=== PATIENT | male | born 1975 | race Caucasian/White ===

== ENCOUNTER → 2016-10-06 | Outpatient (REF) | payer OTHER ==
[2016-10-06 16:03] LABS: ALBUMIN/GLOBULIN RATIO 1.18 (1.00-1.93); ALKALINE PHOSPHATASE 143 U/L (45-117); ALT/SGPT 23 U/L (12-78); ANION GAP 7 MEQ/L (8-16); AST/SGOT 15 U/L (15-37); BILIRUBIN,TOTAL 0.3 MG/DL (0.2-1.0); BLOOD UREA NITROGEN 19 MG/DL (7-18); CALCIUM LEVEL 9.2 MG/DL (8.5-10.1); CARBON DIOXIDE LEVEL 30 MEQ/L (21-32); CHLORIDE LEVEL 105 MEQ/L (98-107); CHOLESTEROL LEVEL 168 MG/DL (<200); GLOMERULAR FILTRATION RATE > 60.0 (>60); GLUCOSE, FASTING 104 MG/DL (70-105); POTASSIUM SERUM 4.2 MEQ/L (3.5-5.1); SODIUM LEVEL 142 MEQ/L (136-145); TOTAL PROTEIN 7.4 GM/DL (6.4-8.2); TRIGLYCERIDES LEVEL 239 MG/DL (<150)
== END ==
LOC: M SFHCLACO 10:38
PROVIDERS: ATTEND Physician Assistant
DX: Z01.818 Encounter for other preprocedural examination (principal); R73.01 Impaired fasting glucose; Z12.5 Encounter for screening for malignant neoplasm of prostate; E29.1 Testicular hypofunction

== ENCOUNTER → 2017-03-29 | Outpatient (CLI) | payer SELFPAY ==
--- NOTE | 2017-03-29 15:53 | REP ---
Clinical: Bilateral shoulder pain . Technique: Internal rotation, external rotation, and Y view of the right and left shoulder . Findings: No acute fracture or dislocation. The acromioclavicular and glenohumeral joints are intact. Mild degenerative changes include cortical irregularity at the acromioclavicular joints as well as blunting to the glenoid rim and subtle subchondral heterogeneity to the glenoid and right humeral head. Impression: Early mild bilateral arthritic degenerative changes. Signed by Getachew Mix MD 03/29/2017 03:44 P
--- NOTE | 2017-03-29 15:54 | REP ---
Clinical: Pain with recent trauma . Technique: AP, lateral, bilateral oblique views of the right elbow. Findings: No acute fracture or dislocation is appreciated. Joint spaces and surrounding soft tissues appear normal. Lateral view demonstrates normal positioning to the anterior and posterior fat pads without evidence for effusion/hemarthrosis. No subcutaneous emphysema or foreign body identified. Impression: Normal right elbow radiographs. Signed by Getachew Mix MD 03/29/2017 03:45 P
== END ==
LOC: M ADAMS 15:04
PROVIDERS: ATTEND Physician Assistant Medical
DX: M19.011 Primary osteoarthritis, right shoulder (principal); M19.012 Primary osteoarthritis, left shoulder; M25.521 Pain in right elbow

== ENCOUNTER → 2017-05-23 | Outpatient (REF) | payer OTHER ==
[2017-05-23 16:02] LABS: ALBUMIN 3.8 GM/DL (3.2-5.2); ALKALINE PHOSPHATASE 153 U/L (45-117); ALT/SGPT 23 U/L (12-78); ANION GAP 8 MEQ/L (8-16); AST/SGOT 17 U/L (15-37); BILIRUBIN,TOTAL 0.3 MG/DL (0.2-1.0); BLOOD UREA NITROGEN 20 MG/DL (7-18); CALCIUM LEVEL 9.5 MG/DL (8.5-10.1); CARBON DIOXIDE LEVEL 27 MEQ/L (21-32); CHLORIDE LEVEL 106 MEQ/L (98-107); CHOLESTEROL LEVEL 195 MG/DL (<200); CREATININE FOR GFR 0.88 MG/DL (0.70-1.30); GLOMERULAR FILTRATION RATE > 60.0 (>60); GLUCOSE, FASTING 185 MG/DL (70-105); POTASSIUM SERUM 4.2 MEQ/L (3.5-5.1); SODIUM LEVEL 141 MEQ/L (136-145); TOTAL PROTEIN 7.6 GM/DL (6.4-8.2); TRIGLYCERIDES LEVEL 241 MG/DL (<150)
== END ==
LOC: M SFHCLACO 10:08
PROVIDERS: ATTEND Physician Assistant
DX: Z01.818 Encounter for other preprocedural examination (principal); R73.01 Impaired fasting glucose; E78.2 Mixed hyperlipidemia

== ENCOUNTER → 2017-11-14 | Outpatient (REF) | payer OTHER ==
[2017-11-14 15:09] LABS: ALBUMIN 3.5 GM/DL (3.2-5.2); ALBUMIN/GLOBULIN RATIO 0.88 (1.00-1.93); ALKALINE PHOSPHATASE 133 U/L (45-117); ALT/SGPT 21 U/L (12-78); ANION GAP 10 MEQ/L (8-16); AST/SGOT 14 U/L (7-37); BILIRUBIN,DIRECT < 0.1 MG/DL (0.0-0.2); BILIRUBIN,TOTAL 0.3 MG/DL (0.2-1.0); BLOOD UREA NITROGEN 15 MG/DL (7-18); CALCIUM LEVEL 9.6 MG/DL (8.5-10.1); CARBON DIOXIDE LEVEL 27 MEQ/L (21-32); CHLORIDE LEVEL 103 MEQ/L (98-107); CHOLESTEROL LEVEL 170 MG/DL (<200); CHOLESTEROL RISK RATIO 3.695 (<5); CREATININE FOR GFR 0.86 MG/DL (0.70-1.30); GLOMERULAR FILTRATION RATE > 60.0 (>60); GLUCOSE, FASTING 178 MG/DL (70-100); HDL CHOLESTEROL 46 MG/DL (>40); LDL CHOLESTEROL 90.6 MG/DL (<100); NON-HDL-C 124 MG/DL; POTASSIUM SERUM 4.3 MEQ/L (3.5-5.1); SODIUM LEVEL 140 MEQ/L (136-145); TOTAL PROTEIN 7.5 GM/DL (6.4-8.2); TRIGLYCERIDES LEVEL 167 MG/DL (<150)
[2017-11-14 15:15] LABS: ESTIMATED AVERAGE GLUCOSE 143 MG/DL (60-110); HEMOGLOBIN A1c 6.6 %
== END ==
LOC: M SFHCLACO 09:25
DX: R73.01 Impaired fasting glucose (principal); R74.8 Abnormal levels of other serum enzymes

== ENCOUNTER → 2018-02-06 | Outpatient (REF) | payer OTHER ==
[2018-02-06 17:55] LABS: BASO # 0.1 10^3/uL (0.0-0.2); BASO % 0.7 % (0.0-1.0); EOS # 0.1 10^3/uL (0.0-0.50); EOS % 1.1 % (0.0-3.0); HEMATOCRIT 43.8 % (42.0-52.0); HEMOGLOBIN 14.8 g/dl (13.5-17.5); IMMATURE GRANULOCYTE % 0.5 % (0-3.0); LYMPH # 3.1 10^3/uL (1.5-4.5); LYMPH % 25.4 % (24.0-44.0); MEAN CORPUSCULAR HEMOGLOBIN 32.9 pg (27.0-33.0); MEAN CORPUSCULAR HGB CONC 33.8 g/dl (32.0-36.5); MEAN CORPUSCULAR VOLUME 97.3 fl (80.0-96.0); MONO # 0.9 10^3/uL (0.0-0.8); MONO % 7.4 % (0.0-5.0); NEUTROPHILS # 7.9 10^3/uL (1.8-7.7); NEUTROPHILS % 64.9 % (36.0-66.0); PLATELET COUNT, AUTOMATED 307 10^3/uL (150-450); RED CELL DISTRIBUTION WIDTH 13.6 % (11.5-14.5); WHITE BLOOD COUNT 12.1 10^3/uL (4.0-10.0)
[2018-02-06 18:09] LABS: PROTHROMBIN TIME 12.2 SECONDS (12.4-14.5)
[2018-02-06 18:10] LABS: PARTIAL THROMBOPLASTIN TIME 29.5 SECONDS (26.8-37.9)
[2018-02-06 18:39] LABS: ALBUMIN 3.5 GM/DL (3.2-5.2); ALKALINE PHOSPHATASE 117 U/L (45-117); ALT/SGPT 18 U/L (12-78); ANION GAP 6 MEQ/L (8-16); AST/SGOT 16 U/L (7-37); BILIRUBIN,TOTAL 0.3 MG/DL (0.2-1.0); BLOOD UREA NITROGEN 12 MG/DL (7-18); CALCIUM LEVEL 8.7 MG/DL (8.5-10.1); CARBON DIOXIDE LEVEL 30 MEQ/L (21-32); CHLORIDE LEVEL 103 MEQ/L (98-107); CREATININE FOR GFR 0.71 MG/DL (0.70-1.30); FREE T4 1.35 NG/DL (0.76-1.46); GLOMERULAR FILTRATION RATE > 60.0 (>60); GLUCOSE, FASTING 113 MG/DL (70-100); POTASSIUM SERUM 3.7 MEQ/L (3.5-5.1); SODIUM LEVEL 139 MEQ/L (136-145); THYROID STIMULATING HORMONE 0.917 uIU/ML (0.358-3.740); TOTAL PROTEIN 7.4 GM/DL (6.4-8.2)
[2018-02-06 20:52] LABS: ESTIMATED AVERAGE GLUCOSE 137 MG/DL (60-110); HEMOGLOBIN A1c 6.4 %
== END ==
LOC: M SFHCPLAZ 14:47
DX: Z01.818 Encounter for other preprocedural examination (principal); R73.01 Impaired fasting glucose
CPT/HCPCS: 84443

== ENCOUNTER → 2018-05-22 | Outpatient (REF) | payer OTHER, SELFPAY ==
[2018-05-22 15:36] LABS: ALBUMIN 3.5 GM/DL (3.2-5.2); ALBUMIN/GLOBULIN RATIO 0.83 (1.00-1.93); ALKALINE PHOSPHATASE 147 U/L (45-117); ALT/SGPT 23 U/L (12-78); ANION GAP 10 MEQ/L (8-16); AST/SGOT 19 U/L (7-37); BILIRUBIN,TOTAL 0.2 MG/DL (0.2-1.0); BLOOD UREA NITROGEN 11 MG/DL (7-18); CALCIUM LEVEL 9.1 MG/DL (8.5-10.1); CARBON DIOXIDE LEVEL 27 MEQ/L (21-32); CHLORIDE LEVEL 105 MEQ/L (98-107); CHOLESTEROL LEVEL 179 MG/DL (<200); CHOLESTEROL RISK RATIO 3.314 (<5); CREATININE FOR GFR 0.72 MG/DL (0.70-1.30); GLOMERULAR FILTRATION RATE > 60.0 (>60); GLUCOSE, FASTING 151 MG/DL (70-100); HDL CHOLESTEROL 54 MG/DL (>40); LDL CHOLESTEROL 101.8 MG/DL (<100); NON-HDL-C 125 MG/DL; SODIUM LEVEL 142 MEQ/L (136-145); TOTAL PROTEIN 7.7 GM/DL (6.4-8.2); TRIGLYCERIDES LEVEL 116 MG/DL (<150)
[2018-05-22 15:47] LABS: ESTIMATED AVERAGE GLUCOSE 146 MG/DL (60-110); HEMOGLOBIN A1c 6.7 %
[2018-05-24 10:50] LABS: TESTOSTERONE FREE (DIRECT) 2.3 pg/mL (6.8-21.5)
== END ==
LOC: M SFHCLACO 08:09
DX: R73.01 Impaired fasting glucose (principal); E29.1 Testicular hypofunction
CPT/HCPCS: 84403

== ENCOUNTER → 2018-10-11 | Outpatient (CLI) | payer OTHER ==
--- NOTE | 2018-10-11 20:33 | ECGEPIP ---
Stationary ECG Study [facility] Test Date: 2018-10-11 Pat Name: ASAD OTTO Department: Room: - Gender: M Director Ehs: [facility] : 1975 Requested By: Kaci Ornelas PA-C, LAC Order Number: [id number] Reading MD: Iavn Hawkins Measurements Intervals [place] Rate: 101 P: 88 TN: 123 QRS: 71 QRSD: 77 T: 66 QT: 333 QTc: 432 Interpretive Statements SINUS TACHYCARDIA POSSIBLE RIGHT ATRIAL ENLARGEMENT LEFT ATRIAL ENLARGEMENT Comparison tracing not on file Electronically Signed On 10-11-2018 20:33:24 EST by Ivan Hawkins
== END ==
LOC: M LAB 08:00
PROVIDERS: ATTEND Physician Assistant
DX: R73.01 Impaired fasting glucose (principal); F17.200 Nicotine dependence, unspecified, uncomplicated; E78.2 Mixed hyperlipidemia

== ENCOUNTER → 2018-10-11 | Outpatient (REF) | payer OTHER ==
[2018-10-11 13:01] LABS: BASO # 0.1 10^3/uL (0.0-0.2); BASO % 0.5 % (0.0-1.0); EOS # 0.1 10^3/uL (0.0-0.50); EOS % 0.5 % (0.0-3.0); HEMATOCRIT 43.6 % (42.0-52.0); HEMOGLOBIN 14.5 g/dl (13.5-17.5); LYMPH % 15.3 % (24.0-44.0); MEAN CORPUSCULAR HEMOGLOBIN 30.9 pg (27.0-33.0); MEAN CORPUSCULAR HGB CONC 33.3 g/dl (32.0-36.5); MONO # 1.1 10^3/uL (0.0-0.8); MONO % 8.3 % (0.0-5.0); NEUTROPHILS # 9.5 10^3/uL (1.8-7.7); NEUTROPHILS % 74.7 % (36.0-66.0); PLATELET COUNT, AUTOMATED 205 10^3/uL (150-450); RED BLOOD COUNT 4.69 10^6/uL (4.30-6.10); WHITE BLOOD COUNT 12.8 10^3/uL (4.0-10.0)
[2018-10-11 13:11] LABS: ALBUMIN 3.1 GM/DL (3.2-5.2); ALT/SGPT 16 U/L (12-78); BILIRUBIN,TOTAL 0.4 MG/DL (0.2-1.0); BLOOD UREA NITROGEN 10 MG/DL (7-18); CALCIUM LEVEL 9.2 MG/DL (8.5-10.1); CARBON DIOXIDE LEVEL 27 MEQ/L (21-32); CHLORIDE LEVEL 100 MEQ/L (98-107); CREATININE FOR GFR 0.81 MG/DL (0.70-1.30); GLOMERULAR FILTRATION RATE > 60.0 (>60); GLUCOSE, FASTING 210 MG/DL (70-100); POTASSIUM SERUM 3.9 MEQ/L (3.5-5.1); SODIUM LEVEL 139 MEQ/L (136-145); TOTAL PROTEIN 7.5 GM/DL (6.4-8.2)
[2018-10-11 13:12] LABS: INR 1.01; PROTHROMBIN TIME 13.4 SECONDS (12.1-14.4)
[2018-10-11 13:13] LABS: PARTIAL THROMBOPLASTIN TIME 31.1 SECONDS (25.4-37.6)
[2018-10-11 13:30] LABS: HEMOGLOBIN A1c 7.2 %
== END ==
LOC: M SFHCLACO 12:30
PROVIDERS: ATTEND Physician Assistant
DX: R73.01 Impaired fasting glucose (principal); F17.200 Nicotine dependence, unspecified, uncomplicated; E78.2 Mixed hyperlipidemia

== ENCOUNTER 2019-01-14 19:38 | Inpatient (IN) | payer OTHER ==
[2019-01-14] VITALS (14 sets, daily range): BP systolic 101–163; BP diastolic 70–103
[~2019-01-14] VITALS: Ht 170.2 cm; Wt 70.8 kg
[2019-01-14] MEDS ORDERED: IPRATROPIUM 0.5MG/ALBUTEROL 2.5MG INH SOL UD 3ML (DUONEB)(J7620) NEB PRN (19:45)
[2019-01-14] MEDS ORDERED: dexameTHASONE 20 MG/5 ML VIAL (J1100) IV ONE (19:45)
[2019-01-14] MEDS ORDERED: ALBU8.5H (19:52)
[2019-01-14 19:56] LABS: ABG BASE EXCESS -2.4 (-2.0-2.0); ABG HCO3 23.2 MEQ/L (22.0-26.0); ABG O2 SATURATION 97.3 % (95.0-99.0); ABG PARTIAL PRESSURE CO2 42.7 mmHg (35.0-45.0); ABG PARTIAL PRESSURE O2 102.8 mmHg (75.0-100.0); ABG STANDARD HCO3 22.5 MEQ/L (22.0-26.0); ABG TOTAL CO2 24.5 MEQ/L (22.0-29.0); ABG pH (ARTERIAL) 7.352 UNITS (7.350-7.450)
[2019-01-14] MEDS ORDERED: PRED10TA2 PO (19:58)
[2019-01-14] MEDS ORDERED: HYDR-3719 PO (19:58)
[2019-01-14] MEDS ORDERED: OXYC15TA76 PO (19:58)
[2019-01-14] MEDS ORDERED: CARI1TAB7 PO (19:58)
[2019-01-14 20:13] LABS: BASO # 0.1 10^3/uL (0.0-0.2); BASO % 0.3 % (0.0-1.0); EOS % 0.2 % (0.0-3.0); HEMATOCRIT 44.1 % (42.0-52.0); HEMOGLOBIN 13.8 g/dl (13.5-17.5); LYMPH # 3.3 10^3/uL (1.5-4.5); LYMPH % 12.7 % (24.0-44.0); MEAN CORPUSCULAR HEMOGLOBIN 29.9 pg (27.0-33.0); MEAN CORPUSCULAR HGB CONC 31.3 g/dl (32.0-36.5); MEAN CORPUSCULAR VOLUME 95.7 fl (80.0-96.0); MONO # 1.6 10^3/uL (0.0-0.8); MONO % 6.1 % (0.0-5.0); NEUTROPHILS # 20.6 10^3/uL (1.8-7.7); NEUTROPHILS % 79.7 % (36.0-66.0); PLATELET COUNT, AUTOMATED 403 10^3/uL (150-450); RED BLOOD COUNT 4.61 10^6/uL (4.30-6.10); WHITE BLOOD COUNT 25.9 10^3/uL (4.0-10.0)
[2019-01-14] MEDS ORDERED: LIDOCAINE 1% MDV 20ML VIAL SC ONE (20:20)
[2019-01-14] MEDS ORDERED: MIDAZOLAM INJ 2 MG/2 ML VIAL (J2250) IV ONE (20:20)
[2019-01-14] MEDS ORDERED: PROAAER10 INH (20:24)
[2019-01-14] MEDS ORDERED: LIDOCAINE 1% MDV 20ML VIAL As Ordered ONE (20:28)
[2019-01-14] MEDS ORDERED: MIDAZOLAM INJ 2 MG/2 ML VIAL (J2250) As Ordered ONE (20:29)
[2019-01-14] MEDS ORDERED: FLUMAZENIL 0.5 MG/5 ML VIAL As Ordered ONE (20:29)
[2019-01-14 20:43] LABS: BLOOD UREA NITROGEN 16 MG/DL (7-18); CALCIUM LEVEL 9.2 MG/DL (8.5-10.1); CARBON DIOXIDE LEVEL 26 MEQ/L (21-32); CHLORIDE LEVEL 99 MEQ/L (98-107); CPK CREATINE PHOSPHOKINASE 46 U/L (39-308); GLOMERULAR FILTRATION RATE > 60.0 (>60); GLUCOSE, FASTING 266 MG/DL (70-100); MB/CK RELATIVE INDEX 3.26 (< OR =4); NT-PRO BNP 2912 PG/ML (<125); POTASSIUM SERUM 4.9 MEQ/L (3.5-5.1); SODIUM LEVEL 135 MEQ/L (136-145); TROPONIN I < 0.02 NG/ML (< 0.10)
[2019-01-14] MEDS ORDERED: ACETAMINOPHEN TAB 650MG DOSE (2X325MG) PO PRN (20:45)
[2019-01-14] MEDS ORDERED: LEVALBUTEROL 1.25 MG/0.5 ML CONCENTRATE NEB NEB PRN (20:45)
[2019-01-14] MEDS ORDERED: ONDANSETRON 4MG/2ML VIAL (J2405) IV PRN (20:45)
[2019-01-14] MEDS ORDERED: PERCOCET 5MG/325MG TAB PO PRN (20:45)
[2019-01-14] MEDS ORDERED: BISACODYL 10 MG SUPP PR PRN (20:45)
[2019-01-14] MEDS ORDERED: NORCO, ANEXSIA 5/325MG TABLET (HYDROcodone/ACETAMINOPHEN) PO PRN (20:45)
[2019-01-14] MEDS: DOCUSATE SODIUM 100 MG CAP PO SCH (21:08)
[2019-01-14] MEDS: KCL 20MEQ IN D5/NS 1000ML 1,000 ML IV SCH (21:08)
[2019-01-14] MEDS: HEPARIN SOD (PORCINE) 5000 UNITS/ML VIAL SC SCH (21:09)
[2019-01-14] MEDS: KETOROLAC 30 MG/ML VIAL (J1885) IV SCH (21:09)
[2019-01-14] MEDS ORDERED: ISOVUE-370 76% 100ML VIAL (Q9967) As Ordered ONE (21:20)
[2019-01-14] MEDS ORDERED: GLYD10GE EXT (21:59)
[2019-01-14] MEDS: PERCOCET 5MG/325MG TAB PO PRN (22:30)
--- NOTE | 2019-01-14 22:34 | REPVR ---
EXAM: CT Chest Without Contrast EXAM DATE/TIME: 01/14/2019 9:46 PM CLINICAL HISTORY: 44 years old, male; Signs and symptoms; Mass, lump, or swelling in the chest; Prior surgery; Additional info: Left upper lobe lesion/mass TECHNIQUE: Imaging protocol: Axial computed tomography images of the chest without intravenous contrast. Coronal and sagittal reformatted images were created and reviewed. 3D rendering: MIP reconstructed images were created and reviewed. Radiation optimization: All CT scans at this facility use at least one of these dose optimization techniques: automated exposure control; mA and/or kV adjustment per patient size (includes targeted exams where dose is matched to clinical indication); or iterative reconstruction. COMPARISON: CR PORTABLE CHEST X-RAY 01/14/2019 8:42 PM FINDINGS: Tubes, catheters and devices: There is a chest tube noted in the pleural space in the right upper hemithorax Lungs: There are numerous, (too many to count ) pulmonary nodules seen in the right lung. Centrilobular type emphysema noted in the right lung. There is left upper lobe atelectasis. There is segmental atelectasis/consolidation noted in the left lower lobe. There is shift of mediastinal structures towards the left Pleural space: There is a small right-sided pneumothorax(approximately 10-20%). A hydropneumothorax is noted in the posterior right costophrenic angle. There is a small left pleural effusion. Heart: Normal. No cardiomegaly. No pericardial effusion. Aorta: Normal. No aortic aneurysm. Lymph nodes: Unremarkable. No enlarged lymph nodes. Bones/joints: Suture anchors are noted in the left proximal humerus and in the right humeral head. There is a levoscoliosis of the lumbar spine. Soft tissues: Subcutaneous emphysema noted within the right upper chest wall. Stomach and bowel: There are scattered colonic diverticula. IMPRESSION: 1. She many to count pulmonary nodules bilaterally consistent with metastatic disease. 2. Small right-sided pneumothorax/hydropneumothorax. A chest tube is in place. 3. Left upper lobe atelectasis/consolidation. Segmental left lower lobe atelectasis/consolidation noted as well. Mediastinal shift into the left hemithorax. 4. Small left pleural effusion 5. Centrilobular type emphysema. Electronically signed by: Tonie Gunn On 01/14/2019 22:33:49 PM
[2019-01-15] VITALS (9 sets, daily range): BP systolic 95–137; BP diastolic 65–89
--- NOTE | 2019-01-15 01:43 | ECGEPIP ---
Stationary ECG Study [facility] Test Date: 2019-01-14 Pat Name: ROSA ISELA OTTO Department: Room: - Gender: M Contact And Service Clerks Supervisor: tara : 1975 Requested By: Harry Do Order Number: [id number] Reading MD: Harry Malone Measurements Intervals [place] Rate: 145 P: 91 AR: 113 QRS: 33 QRSD: 77 T: 88 QT: 257 QTc: 399 Interpretive Statements SINUS TACHYCARDIA WITH SHORT AR INTERVAL WITH FREQUENT SUPRAVENTRICULAR PREMATURE CO COMPLEXES SEPTAL MYOCARDIAL INFARCTION, OF INDETERMINATE AGE SIMILAR TO 10/11/18 Electronically Signed On 01-15-2019 1:43:26 EDT by Harry Malone
[2019-01-15] MEDS: LEVALBUTEROL 1.25 MG/0.5 ML CONCENTRATE NEB NEB SCH ×4 (02:00→21:02)
[2019-01-15] MEDS: PERCOCET 5MG/325MG TAB PO PRN ×5 (04:15→19:47)
[2019-01-15] MEDS: KETOROLAC 30 MG/ML VIAL (J1885) IV SCH ×4 (04:43→22:37)
[2019-01-15 05:20] LABS: BASO % 0.2 % (0.0-1.0); HEMOGLOBIN 12.3 g/dl (13.5-17.5); LYMPH # 1.1 10^3/uL (1.5-4.5); LYMPH % 8.6 % (24.0-44.0); MEAN CORPUSCULAR HEMOGLOBIN 29.1 pg (27.0-33.0); MEAN CORPUSCULAR HGB CONC 30.8 g/dl (32.0-36.5); MEAN CORPUSCULAR VOLUME 94.6 fl (80.0-96.0); MONO # 0.6 10^3/uL (0.0-0.8); MONO % 4.9 % (0.0-5.0); NEUTROPHILS # 11.1 10^3/uL (1.8-7.7); NEUTROPHILS % 85.7 % (36.0-66.0); RED BLOOD COUNT 4.23 10^6/uL (4.30-6.10)
[2019-01-15 05:27] LABS: PLATELET COUNT, AUTOMATED 259 10^3/uL (150-450)
[2019-01-15 05:36] LABS: BLOOD UREA NITROGEN 22 MG/DL (7-18); CALCIUM LEVEL 8.8 MG/DL (8.5-10.1); CARBON DIOXIDE LEVEL 24 MEQ/L (21-32); CHLORIDE LEVEL 106 MEQ/L (98-107); CREATININE FOR GFR 0.94 MG/DL (0.70-1.30); GLOMERULAR FILTRATION RATE > 60.0 (>60); GLUCOSE, FASTING 375 MG/DL (70-100); POTASSIUM SERUM 4.6 MEQ/L (3.5-5.1); SODIUM LEVEL 137 MEQ/L (136-145)
[2019-01-15 05:36] LABS: ABG BASE EXCESS 0.4 (-2.0-2.0); ABG HCO3 25.2 MEQ/L (22.0-26.0); ABG PARTIAL PRESSURE CO2 41.3 mmHg (35.0-45.0); ABG PARTIAL PRESSURE O2 90.5 mmHg (75.0-100.0); ABG STANDARD HCO3 24.8 MEQ/L (22.0-26.0); ABG TOTAL CO2 26.4 MEQ/L (22.0-29.0); ABG pH (ARTERIAL) 7.403 UNITS (7.350-7.450)
--- NOTE | 2019-01-15 08:07 | HPE ---
DATE OF ADMISSION: 01/14/2019 The patient was seen at the emergent request of the ER, Dr. Malone for shortness of breath and tension pneumothorax by chest x-ray. The patient's most immediate problem started earlier this afternoon after he came back from rehab for a rotator cuff injury. He started to feel extremely short of breath with chest discomfort and chest pain. He think that the process actually started about 24-36 hours ago when he started to become more short of breath and had chest discomfort on the right side. He was brought to the ER by emergency medical services (EMS) and was found to have a pneumothorax with a left sided shift of the mediastinum. Most significantly, over the past winter he has been coughing up brown to white sputum. He does not complain of fever, but he has had chills, but not rigor. Most significantly, he has dropped about 20 pounds in weight over the past three months. He just does not have an appetite. He has no dysphagia. He has been eating as much as he can but to no avail to stop the unintended weight loss. Notably, he does not complain of pain in his left side. He has had no overt hemoptysis. In addition to his shortness of breath over the past 36 hours, he is more short of breath over the past six months and went to see his primary care provider, Miss Kaci Ornelas who thought he had chronic obstructive pulmonary disease (COPD). He was placed on inhalers. The inhalers were composed of INCRUSE and Breo Ellipta. He stopped the Breo Ellipta as it had unpleasant side effects. He was also placed on albuterol as rescue inhaler. In the last few weeks, prednisone was added to his therapy. With the prednisone, he felt much better. This evening when he became very short of breath he took 12 puffs of his rescue inhaler to no avail before being transported to the hospital. PAST MEDICAL HISTORY: Supposed COPD. Hypertension. Acute bronchitis for which he was placed on prednisone and has been continued. Chronic pain from his rotator cuff injury. PAST SURGERIES: Rotator cuff repair. ALLERGIES: 1. Bee venom. 2. CODEINE. MEDICATIONS AT HOME: - ProAir HFA two puffs every 4 hours as needed shortness of breath - carisoprodol 350 mg four times a day - Vicodin 10/325 four times a day as needed pain - oxycodone 45 mg by mouth three times a day - prednisone 10 mg daily TRAVEL HISTORY: He has had travel in the remote past to [place], but none to the [facility]. EXPOSURES: He has one dog, a black lab at home, and a cat. No birds. 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 There is no asbestos exposure. HABITS: Smoked one to one and a half packs per day until 35 days ago. He used to drink heavily but not now, and has had occasional marijuana. FAMILY HISTORY: Not pertinent to the acute situation. REVIEW OF SYSTEMS: CONSTITUTIONAL: See HPI. EYES: Without amaurosis fugax or prior jaundice. Does state that he has kaleidoscope vision with stars occasionally, which resolves. NOSE: Without epistaxis. MOUTH: Has his own teeth, does not wear dentures. RESPIRATORY: See HPI. CARDIAC: See HPI. Without intermittent claudication. Without peripheral edema. May have a bicuspid aortic valve. No convincing history of prior myocardial infarction. GASTROINTESTINAL (GI): Without nausea, vomiting. Occasional diarrhea and constipation. Had two black bowel movements over the winter, most of the time they are brown however. No hematochezia. No hematemesis. No dysphagia. GENITOURINARY (): Multiple hematuria, dysuria or prior history of renal stones. NEUROLOGIC: Without paresthesia, paralyses or gait disturbances. Without prior seizures. PSYCHIATRIC: Without pathological anxieties, psychoses or depressions. May be narcotic addicted from prescription medications. ENDOCRINE: Without diabetes. Without thyroid disease. HEMATOLOGICAL: Without prolonged bleeding times. PHYSICAL EXAMINATION: GENERAL: A well-developed, aesthetic underweight white male in near respiratory failure and major respiratory distress. He can hardly speak in full sentences. VITAL SIGNS: Upon admission to the ICU, heart rate 142, temperature 98.6, blood pressure of 140/103, respiratory rate of 30-32 and he is 94% saturated on 15 liter nonrebreather. He is in sinus tachycardia with multiple PACS. EYES: Pupils equal, round and reactive to light. Extraocular motors intact. Sclera nonicteric. HEAD: Normocephalic. NOSE: Without deformity. MOUTH: Shows his mucous membranes to be pink and moist. Lips and commissures without lesions There is no thrush. Many of his teeth are missing. NECK: Supple. There is some jugular venous distention (JVD). No subcutaneous emphysema. Trachea is deviated to the left. There is no carotid bruits and he has 2+ carotid upstrokes. There is a left supraclavicular lymph node non tender about 1.5 cm, firm and fixed. LUNGS: Lung exam prior to placement of chest tube showed markedly decreased breath sounds on the right with hyperresonance on the right. After chest tube placement, breath sounds were equal with some end expiratory wheezing on both sides, right greater than left. CARDIAC EXAM: Shows a 2/6 systolic ejection heart murmur heard best at the left sternal border. A bandage is covering his right sternal border and I cannot hear through the bandage well. His PMI is in the 5th intercostal space. S1 and S2 are normal. ABDOMEN: Soft, nontender. Bowel sounds are positive. There is no hepatomegaly. No costovertebral angle (CVA) tenderness. EXTREMITIES: Show no pretibial edema. No calf tenderness. No differential swelling of the upper extremities. SKIN: Warm, dry and perfused, but cyanosis around his lips. No mottling including that of the nail beds and the knees. NEURO: Shows II through XII intact, along with gross motor and gross sensation intact. Gait is not tested. PSYCHIATRIC: Shows him to be awake and alert, and appropriately anxious secondary to respiratory distress. His white count is 25.9 with a hemoglobin and hematocrit of 13.8 and 44.1, platelet count of 403. Differential shows 79% neutrophils, 12% lymphocytes, and 6% monocytes. There are no immature forms. No toxic granulations. His electrolytes are essentially normal with a BUN and creatinine of 16 and 0.8, glucose of 266 and a calcium of 9.2. Troponin is less than 0.02. TSH is 1.8, within normal limits and his BNP is 2900. His lactic acid is 4.1. Blood gases show a pH of 7.35, pCO2 of 42, pO2 of 102 with a base excess of - 2.4. His chest x-ray shows a large pneumothorax with a severe shift to the right with subcutaneous emphysema overlying particularly on the lateral chest wall. There is atelectasis or most likely a mass in the left upper lobe. I can find no other comparison films at [facility]. After his chest tubes were placed the mediastinum shifted back to the midline, but there is still a rather large mass and opacity in the left upper lobe. He has numerous fluffy alveolar infiltrates on the right side. I cannot tell if that is post atelectatic compression. IMPRESSION: 1. Tension pneumothorax. 2. Respiratory failure. 3. Left upper lobe opacity, probably a mass. 4. Weight loss, unexplained. 5. Probable chronic obstructive pulmonary disease (COPD). 6. Tobacco abuse. 7. Hypertension. 8. Probable bicuspid aortic valve. PLAN AND DISCUSSION: I have already placed a chest tube emergently. Tomorrow we will obtain a CT scan of his chest. I will obtain an EKG. I will also obtain a sputum culture. I will not start antibiotics as I think his white count can be well explained by demargination secondary to stress. We will closely monitor him over the next 12 hours. EMMIE
[2019-01-15] MEDS: MOM 30ML SUSPENSION UDC PO SCH (08:13)
[2019-01-15] MEDS: predniSONE 5 MG TAB PO SCH (08:14)
[2019-01-15] MEDS: HEPARIN SOD (PORCINE) 5000 UNITS/ML VIAL SC SCH ×2 (08:14→19:47)
[2019-01-15] MEDS: DOCUSATE SODIUM 100 MG CAP PO SCH ×2 (08:14→19:46)
[2019-01-15] MEDS: PANTOPRAZOLE 40MG TAB (PROTONIX) PO SCH (08:14)
--- NOTE | 2019-01-15 08:50 | REP ---
Chest x-ray: Two views. History: Pneumothorax. Comparison chest x-ray: January 14, 2019. Findings: EKG monitoring electrodes overlie the chest. There is a right apical chest tube in place. There is a small apical pleural air collection adjacent to the test chest tube and surrounding the apex of the right lung. There is also subcutaneous emphysema along the right upper lateral chest wall. This has increased somewhat. There are are extensive small nodular densities throughout the right lung. The right lung is somewhat overinflated. There is blunting of the right lateral pleural angle. The left hemithorax shows volume loss with essentially complete opacification of the left upper lobe and elevation of the left hemidiaphragm. There is a suggestion of left pleural effusion as well. These findings are unchanged from yesterday's radiograph. Electronically Signed by Walt Salinas MD 01/15/2019 08:41 A
[2019-01-15] MEDS: CARISOPRODOL 350 MG TAB PO SCH (09:16)
--- NOTE | 2019-01-15 09:20 | REP ---
PORTABLE CHEST: AP portable view of the chest is performed and compared to a prior exam this same day. Right chest tube is in place. There appears to be a tiny residual pneumothorax inferiorly. There is a small right pleural effusion. Multiple pulmonary nodules are seen throughout the right lung. Large left apical mass is present. There is atelectasis/infiltrate in the left lung base. There is shift of heart and mediastinal structures to the left likely due to atelectatic change. There are degenerative changes of the spine. Electronically Signed by Anderson Salazar MD 01/16/2019 10:04 A
--- NOTE | 2019-01-15 09:22 | REP ---
PORTABLE CHEST: AP portable view of the chest is performed. There is a fairly large right pneumothorax. There is shift of heart mediastinal structures to the left indicating that this is a tension pneumothorax. There is a small amount of right pleural fluid. Multiple nodular densities are seen in the right lung with atelectatic change in the right lung base. There is a left apical mass. There is infiltrate/atelectasis in the left lung base. Referring clinician was aware of these findings at the time of the exam. Electronically Signed by Anderson Salazar MD 01/16/2019 10:06 A
[2019-01-15] MEDS: KCL 20MEQ IN D5/NS 1000ML 1,000 ML IV SCH ×2 (10:33→23:24)
[2019-01-15] MEDS: GASTROGRAFIN SOLUTION 30ML PO SCH ×2 (12:34→13:00)
--- NOTE | 2019-01-15 12:56 | IPN ---
DATE: 01/15/2019 I have had quite an extensive talk with Mr. Arceo and with his mom at his bedside, telling them the findings of the CAT scan yesterday with what looks to be diffuse metastatic nodules throughout his lung. He is breathing alright today, and he has no air leak. His vital signs show a maximum temperature (Tmax) of 98.3 with a heart rate that ranges between 78 and 98 in a sinus rhythm, respiratory rate of 18-21 without use of accessory muscles, who is 96-99% saturated on 2 liters nasal cannula, and his blood pressures ranging between 109/72 to 137/86. His intake and output for the past 24 hours have been recorded as 240 in and 50 out for a positivity 190 mL. He has taken in 670 mL this morning. He has put out 50 mL out his chest tube, and there is no air leak. Weight is pending. PHYSICAL EXAMINATION: He has equal breath sounds on either side. I do hear some rales and rhonchi, particularly on the left side and a squeak associated with the chest tube on the right side. Percussion notes are full to the diaphragm. CARDIAC EXAM: Shows the 2-3 systolic ejection murmur heard best at the left upper sternal border. S1 and S2 are normal. ABDOMEN: Is soft, nontender. Bowel sounds are positive. There is no hepatomegaly. No costovertebral angle (CVA) tenderness. EXTREMITIES: Show no pretibial edema. No calf tenderness. No differential swelling of the upper extremities. SKIN: Is warm, dry, and perfused, without cyanosis including that of the mouth, nail beds and the knees. Neck is supple. There is no jugular venous distention. No subcutaneous emphysema. Trachea is midline. Mouth shows his mucous membranes to be pink and moist, lips and commissures. There is no thrush. Eyes show his pupils to be equal and reactive. Extraocular intact. Sclerae nonicteric. NEURO: Shows II through XII intact, along with gross motor and gross sensation intact. Gait is not tested. PSYCHIATRIC: Shows him to be awake and alert, oriented times three with appropriate mood and affect, and conversational. I have done a full skeletal survey and physical examination, and I feel no bony masses, looking for osteosarcoma. Testicular exam reveals normal size testes without masses or swelling or tenderness. His white count today is 13.0 with a hemoglobin/hematocrit of 12.3 and 40.0, and a platelet count of 259. Differential shows 85% neutrophils, 8% lymphocytes, 4% monocytes. There are no immature forms. No toxic granulations. His electrolytes are normal with a BUN and creatinine of 22 and 0.94, and glucose of 375 and a creatinine 8.8. Blood gasses this morning show a pH of 7.40, pCO2 of 41, a pO2 of 90, and a base excess of 0.4. His chest x-ray today shows consolidation of the left upper lobe. Numerous masses/nodules can be seen on the right side. There is minimal subcutaneous emphysema on the lateral chest wall. I do not see the left costophrenic angle, and it looks as though there is atelectasis or consolidation of the left lower segment. IMPRESSION: 1. Tension pneumothorax, resolved with a chest tube. 2. Respiratory failure, resolved. 3. Left upper lobe opacity, probably a mass with postobstructive atelectasis. 4. Multiple metastatic nodules throughout both lungs, right greater than left. 5. Unexplained weight loss, probably secondary to malignancy. 6. Chronic obstructive pulmonary disease (COPD). 7. Tobacco abuse. 8. Hypertension. 9. Probable bicuspid aortic valve. PLAN AND DISCUSSION: While this could be inflammatory i.e. Alicia's, I highly doubt it. I think this is widely metastatic disease. The common-garden variety lung cancer usually does not present with all the numerous nodules. There are no signs that this is infectious, and his blood cultures are all negative. I do not think these represent septic emboli. They certainly do not represent rheumatoid nodules. The most likely cause of this is widely metastatic disease, and our efforts have to now be concentrated on finding the source of the malignancy. I have asked Dr. Higginbotham of pulmonology to see him with the goal to undertake a bronchoscopy particularly of the left upper lobe, where he has a cutoff, and biopsy the left upper lobe bronchus. I will obtain a CT scan of his chest, abdomen, pelvis with contrast along with his head to look for metastatic disease. The abdomen/pelvis CT may give us some more clues from where this is emanating. As noted above, he has no testicular masses, and I see no obvious skeletal masses to suggest either testicular carcinoma or osteosarcoma, respectively. As noted in the introduction, I have had a long talk with Mr. Arceo and his mom, who is at his bedside. We are just starting down the long road to finding out exactly what the underlying malignancy is, before we can even think about recommending treatment or nontreatment.
[2019-01-15] MEDS ORDERED: ISOVUE-370 76% 100ML VIAL (Q9967) As Ordered ONE (13:56)
--- NOTE | 2019-01-15 14:50 | REP ---
CT HEAD WITHOUT AND WITH CONTRAST: HISTORY: Metastasis. CONTRAST: Isovue 370, 75 mL. There is no intraparenchymal hemorrhage, mass, or midline shift. There is no abnormal enhancement. The ventricular system is normal in appearance. There is no extracerebral collection. The visualized sinuses are clear. IMPRESSION: There is no intracranial lesion. Electronically Signed by Donnell Lou MD 01/15/2019 02:53 P
--- NOTE | 2019-01-15 15:28 | REP ---
CT chest with IV contrast: History: Metastatic malignancy. Comparison is made with noncontrast chest CT from the previous day and recent chest x-rays. CT contrast dose: 100 mL of intravenous Isovue [address] findings: There is extensive opacification in the left upper lobe and in the left lower lobe. There is a evidence of left hilar lymphadenopathy with both upper lobe and lower lobe bronchial obstruction and occlusion. There is some residual aeration in the distribution of the lingula. There are multiple pulmonary nodules throughout the of the aerated lingula and throughout the entire right lung. These are compatible with metastatic disease. The largest left-sided nodule measures 16 mm. Several of the right-sided nodules are cavitary. The largest of these measure up to 19 mm. There is a 28 mm nodular opacity in the upper lobe peribronchovascular distribution which appears to be coalescent nodules. The metastatic nodules are too numerous to count. A right chest tube is seen in place with a small amount of right pleural fluid and a stripe of pleural air. There is extrathoracic air in the axillary and anterior extrathoracic soft tissues on the right. There is subcarinal, right hilar and left hilar lymphadenopathy. Pretracheal adenopathy is seen. There is anterior mediastinal adenopathy. In the consolidated left upper lobe there is a irregular spherical area of decreased enhancement which may be a parenchymal mass. This measures 3.9 cm in greatest diameter. The remainder the consolidation appears to be postobstructive. There is a left pleural effusion as well. No pericardial effusion is appreciated. No axillary or supraclavicular adenopathy is seen. No bony destructive lesion is appreciated. Impression: Extensive postobstructive consolidation and pneumonia in the left upper lobe and left lower lobe. Left pleural effusion small. Right chest tube with small right effusion. Too numerous to count pulmonary metastatic nodules bilaterally. Bilateral hilar and mediastinal lymphadenopathy. Findings consistent with extensive metastatic malignancy. Tuberculosis fungal disease and granulomatous disease are in the differential as well. Electronically Signed by Walt Salinas MD 01/15/2019 08:45 P
--- NOTE | 2019-01-15 20:56 | REP ---
CT abdomen with IV and oral contrast: History: Metastatic malignancy. CT contrast dose: 100 ml of intravenous Isovue 370. CT scanning is performed from the diaphragms to the iliac crests. CT findings: Liver is enlarged. Midclavicular vertical span is 20.8 cm. No focal hepatic lesion is seen. The adrenal glands are normal. No pancreatic mass lesion is observed. Spleen is homogeneous. The kidneys enhance symmetrically and are morphologically intact. No renal mass lesion is observed. No abnormalities seen in the gallbladder. The visualized abdominal small large bowel loops are unremarkable. No bony abnormality is seen. There is a levoconvex scoliotic curve of the lumbar spine with degenerative disc changes. Impression: Hepatomegaly. No focal liver lesion is seen. No mass or adenopathy is noted in the abdomen. Electronically Signed by Walt Salinas MD 01/15/2019 08:47 P
--- NOTE | 2019-01-15 21:24 | ECGEPIP ---
Stationary ECG Study [facility] Test Date: 2019-01-14 Pat Name: ROSA ISELA OTTO Department: Room: [place] [address] Gender: M Client Engagement Manager: JOSE : 1975 Requested By: Nathanael Su Order Number: [id number] Reading MD: Ivan Hawkins Measurements Intervals [place] Rate: 96 P: HI: 0 QRS: 16 QRSD: 81 T: 42 QT: 361 QTc: 458 Interpretive Statements Sinus rhythm with PACs PRWP Septal Q waves previously noted on tracing done 01-14-19 at 20:01 Electronically Signed On 01-15-2019 21:23:53 EDT by Ivan Hawkins
[2019-01-16] VITALS (8 sets, daily range): BP systolic 108–136; BP diastolic 60–104
[2019-01-16] MEDS: LEVALBUTEROL 1.25 MG/0.5 ML CONCENTRATE NEB NEB SCH ×4 (01:15→21:19)
[2019-01-16] MEDS: PERCOCET 5MG/325MG TAB PO PRN ×5 (02:11→22:54)
[2019-01-16] MEDS: KETOROLAC 30 MG/ML VIAL (J1885) IV SCH ×4 (04:00→20:33)
[2019-01-16 05:56] LABS: BASO % 0.2 % (0.0-1.0); EOS # 0.3 10^3/uL (0.0-0.50); EOS % 2.1 % (0.0-3.0); HEMATOCRIT 37.2 % (42.0-52.0); HEMOGLOBIN 11.7 g/dl (13.5-17.5); LYMPH # 1.7 10^3/uL (1.5-4.5); LYMPH % 11.6 % (24.0-44.0); MEAN CORPUSCULAR HEMOGLOBIN 29.7 pg (27.0-33.0); MEAN CORPUSCULAR HGB CONC 31.5 g/dl (32.0-36.5); MEAN CORPUSCULAR VOLUME 94.4 fl (80.0-96.0); MONO # 0.8 10^3/uL (0.0-0.8); MONO % 5.6 % (0.0-5.0); NEUTROPHILS # 11.4 10^3/uL (1.8-7.7); PLATELET COUNT, AUTOMATED 286 10^3/uL (150-450); RED BLOOD COUNT 3.94 10^6/uL (4.30-6.10); WHITE BLOOD COUNT 14.2 10^3/uL (4.0-10.0)
[2019-01-16 06:10] LABS: BLOOD UREA NITROGEN 18 MG/DL (7-18); CALCIUM LEVEL 8.2 MG/DL (8.5-10.1); CARBON DIOXIDE LEVEL 24 MEQ/L (21-32); CHLORIDE LEVEL 107 MEQ/L (98-107); CREATININE FOR GFR 0.66 MG/DL (0.70-1.30); GLOMERULAR FILTRATION RATE > 60.0 (>60); GLUCOSE, FASTING 312 MG/DL (70-100); POTASSIUM SERUM 4.1 MEQ/L (3.5-5.1); SODIUM LEVEL 139 MEQ/L (136-145)
--- NOTE | 2019-01-16 08:06 | REP ---
Chest x-ray: Two views. History: Pneumothorax. Comparison chest x-ray: January 15, 2019. Findings: A right apical chest tube remains in place. There is a small right-sided pneumothorax essentially unchanged from yesterday's radiograph. Slight blunting of the right lateral pleural angle is seen. Extensive nodular opacities are seen throughout the right lung. Volume loss and consolidation are seen in the left upper lobe and left base. There is pleural opacity in the left base consistent with an effusion. There is some fissural thickening on the lateral film. Findings are otherwise unchanged. Electronically Signed by Walt Salinas MD 01/16/2019 07:58 A
[2019-01-16] MEDS: HEPARIN SOD (PORCINE) 5000 UNITS/ML VIAL SC SCH ×2 (09:00→20:34)
[2019-01-16] MEDS: MOM 30ML SUSPENSION UDC PO SCH (09:31)
[2019-01-16] MEDS: PANTOPRAZOLE 40MG TAB (PROTONIX) PO SCH (09:32)
[2019-01-16] MEDS: CARISOPRODOL 350 MG TAB PO SCH (09:32)
[2019-01-16] MEDS: DOCUSATE SODIUM 100 MG CAP PO SCH ×2 (09:32→20:33)
[2019-01-16] MEDS: predniSONE 5 MG TAB PO SCH (09:32)
[2019-01-16 09:50] LABS: INR 1.01; PROTHROMBIN TIME 13.4 SECONDS (12.1-14.4)
[2019-01-16] MEDS ORDERED: FENTANYL REMOVAL DOCUMENTATION MISC XX SCH (11:00)
[2019-01-16] MEDS ORDERED: fentaNYL 25 MCG/HR PATCH TOP SCH (11:00)
--- NOTE | 2019-01-16 11:56 | CR ---
DATE OF CONSULTATION: 01/15/2019 I was asked by Dr. Law to consult Mr. Arceo for an abnormal CT scan. Mr. Arceo is a 44-year-old white male who presented to the emergency department because of increased shortness of breath and pain following physical therapy for rotator cuff surgery. He had noted that, intermittently, he would have similar difficulties but they would resolve either with repositioning or time. This time, his symptoms were worse. He proceeded to the emergency department where he was found to have a tension pneumothorax. A chest tube was placed. Following the chest tube was placed, he had a chest CT scan done which was markedly abnormal and will be described below. Mr. Arceo notes that he has had difficulties starting this winter. He has noted an increased cough and increased shortness of breath. He feels he can now walk about 50 feet. Six months prior to that though, however, he noted he needed to undergo a stress test for rotator cuff surgery, and he could not do a treadmill test because of shortness of breath and had to have a nuclear medicine stress test. He has a cough at baseline, but that has been accentuated since August. His sputum production is typically brown, though he said that a couple to times it has been blood streaked. He has postnasal drip. He has constant gastroesophageal reflux disease (GERD) symptoms for which he "eats" antacids. No paroxysmal nocturnal dyspnea (PND) or orthopnea. He will occasionally note dependent lower extremity edema. No history of deep venous thrombosis (DVT). He feels he may have intermittently had fevers but no persistent fevers, chills, or drenching night sweats. He has lost 50 pounds over the past 3 months. He notes that he was in a size 34 pant and had to cinch the belt loop in. He bought 32 pants and now has to cinch his belt all the way in. He initially sought medical care for his increased cough and shortness of breath in August when he was diagnosed with chronic obstructive pulmonary disease (COPD). He did not have any spirometric assessment or CXR. He was placed on inhalers. He did not feel that they were beneficial. He then went to an urgent care sometime in September or October where he was told he had bronchitis. He was treated with antibiotics and prednisone. No CXR. He did feel improvement for about 3 weeks after that treatment before his symptoms recurred. He had not had a chest x-ray taken until presentation to the emergency department. He notes he did have left shoulder x-rays taken less than a year ago in regards to his rotator cuff surgery. ALLERGIES: BEE VENOM and CODEINE. MEDICATIONS ON ADMISSION: - ProAir two puffs every 4 hours as needed - carisoprodol 350 mg by mouth four times a day as needed - hydrocodone/acetaminophen 0.5 by mouth four times a day as needed - lidocaine patch three times a day - oxycodone 7.5 mg by mouth three times a day as needed - prednisone 10 mg by mouth daily PAST MEDICAL HISTORY: 1. Hypertension. 2. Chronic back pain since his 20s. 3. Status post bilateral rotator cuff surgery. 4. History of significant tobacco history, recent cessation. SOCIAL HISTORY: Mr. Arceo is a former smoker having started at age 14 and having started reducing his intake in August when he was told he had COPD. He smoked two packs per day up to that time giving him a 60-pack year history. He quit 35 days ago. He has alcohol in the summer but not otherwise. 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 No known exposure to pulmonary toxins such as gas fumes or asbestos. He has one black Lab at home. They recently had to put down their second black Lab whom they had had for 17 years. They have one cat. No birds. No recent travel. He has [place] traveled to the [place] in the [facility]. FAMILY HISTORY: He believes both of his parents had blood clotting disorders. His father had COPD and was a smoker. Both his mother and father have heart disease. REVIEW OF SYSTEMS: Per history of present illness (HPI). Remainder of pertinent review of systems are negative. PHYSICAL EXAMINATION: GENERAL: Mr. Arceo is sitting in bed in mild respiratory distress. He speaks relatively short sentences. No cough evaluation. VITAL SIGNS: Temperature 98.1, pulse 106, respiratory rate 24, blood pressure 95/69 with a MAP of 78. SpO2 97% on FiO2 of 2 liters. HEENT: Anicteric. Nares: Patent bilaterally. Moist mucosa. Septum appears midline. Oropharynx clear, no lesions, Mallampati II, faces normal. LYMPH: Without cervical or supraclavicular lymphadenopathy. CHEST: Normal shape. LUNGS: Symmetric excursion, bronchial breath sounds over the left upper lobe region, there are also crackles at the right base. No wheeze or rhonchi. Normal I:E. No accessory muscle usage or retractions. Normal percussion though some tenderness. No focal tenderness. CARDIOVASCULAR: Tachycardic, regular rhythm, 2/6 systolic ejection murmur heard best at the left upper sternal border. No rub or gallop. ABDOMEN: Positive bowel sounds. Soft, nondistended, nontender, no hepatosplenomegaly or masses appreciated. EXTREMITIES: Without clubbing, cyanosis, or significant edema. Palpable pedal pulses bilaterally. NEUROLOGIC: Awake, alert and oriented times three. No focal deficits. PSYCHIATRIC: Affect appears appropriate. LABORATORY DATA: CBC from today showed a hemoglobin of 12.3, hematocrit 40, platelet count 259,000, white blood cell count 13,000 with a differential of 86% neutrophils, 9% lymphocytes, 5% monocytes. Chemistries showed a sodium 137, potassium 4.6, chloride 106, bicarbonate 24, anion gap 7, BUN 22, creatinine 0.9, glucose 375, calcium 8.8. Arterial blood gas this morning was 7.40/41/91 with a measured saturation of 97% and a base excess of 0.4. I do not know what level of oxygen that was drawn on. Blood cultures from 01/14/2019 are negative this time. I reviewed his chest CT scan as well as report from yesterday, and I reviewed his chest CT scan and report from today which was a CT scan with contrast. Both films show normal appearing cardiac silhouette and pulmonary vascular shadows. There is left hilar lymphadenopathy, subcarinal, pretracheal, anterior mediastinal, and right hilar lymphadenopathy. There are multiple right-sided nodules consistent with metastatic disease, a few that are cavitary. There are postobstruction findings on the left in both the left upper and left lower lobes. There is an area in the left upper lobe that appears may be a parenchymal mass. IMPRESSION: 1. Abnormal chest CT scan. He has findings of a probable left upper lobe mass. He also appears to likely have either extrinsic compression of bronchi or more likely endobronchial processes on the left. He has multiple nodules on the right that are most consistent with a metastatic process. 2. Tension pneumothorax, status post right thoracostomy. 3. Possible chronic obstructive pulmonary disease (COPD). 4. Nonvolitional weight loss. 3. Significant tobacco history. RECOMMENDATIONS: 1. I have spoken at length with Dr. Law regarding Mr. Arceo. Based on the CT findings, I agree with starting with a transthoracic biopsy of the left upper lobe process. 2. Ideally, would be able to have cytology on hand so as to indicate whether we were in an appropriate location. 3. I also would recommend consideration of biopsying one of the pleural-based or even intraparenchymal lesions on the right as he already has a chest tube in to handle the major complication for that procedure. 4. An alternative, at some point, would be bronchoscopy. I am concerned with how he appears in general with his tachypnea and short sentences. If bronchoscopy is decided upon, I feel it likely would be best done under general anesthesia. Given the wide metastasis, I do not feel that EBUS would be necessary for staging given the bilateral findings. The procedure would be to evaluate the endobronchial processes and if a lesion was there to biopsy it. Only if the lesion was not present would I recommend extending the length under general anesthesia and going to an EBUS procedure for diagnosis. 5. Would continue to supplement oxygen as you are doing. 6. Depending upon the findings, complete pulmonary function tests are likely necessary. Thank you for this consultation. Will continue to follow with you. EMMIE
[2019-01-16] MEDS: KCL 20MEQ IN D5/NS 1000ML 1,000 ML IV SCH (12:07)
[2019-01-16] MEDS ORDERED: FUROSEMIDE 40 MG/4 ML VIAL (J1940) IV ONE (12:15)
[2019-01-16] MEDS ORDERED: LIDOCAINE 1% MDV 20ML VIAL As Ordered ONE (12:43)
--- NOTE | 2019-01-16 18:47 | REP ---
Chest x-ray: Two views. History: Pneumothorax. Status post CT guided needle biopsy of the left upper lobe region. Comparison study: January 16, 2019. Findings: Right apical chest tube remains in place. Tiny sliver of right lateral pleural air is seen. Slight blunting of the right lateral pleural angle is again noted. Extensive nodular opacification right lung again seen. Collapse of the left upper lobe and the left lower lobe. Impression: No significant change from the film done earlier this date. Electronically Signed by Walt Salinas MD 01/17/2019 08:58 A
[2019-01-17] MEDS: KCL 20MEQ IN D5/NS 1000ML 1,000 ML IV SCH (01:20)
[2019-01-17] MEDS: PERCOCET 5MG/325MG TAB PO PRN ×6 (02:33→23:18)
[2019-01-17] MEDS: LEVALBUTEROL 1.25 MG/0.5 ML CONCENTRATE NEB NEB SCH ×4 (02:34→20:00)
[2019-01-17] MEDS: KETOROLAC 30 MG/ML VIAL (J1885) IV SCH ×4 (03:20→21:10)
[2019-01-17 04:00] VITALS: BP 110/71
[2019-01-17 06:23] LABS: BASO % 0.2 % (0.0-1.0); EOS # 0.2 10^3/uL (0.0-0.50); EOS % 1.1 % (0.0-3.0); HEMATOCRIT 37.8 % (42.0-52.0); HEMOGLOBIN 11.9 g/dl (13.5-17.5); LYMPH # 1.4 10^3/uL (1.5-4.5); LYMPH % 9.3 % (24.0-44.0); MEAN CORPUSCULAR HEMOGLOBIN 29.2 pg (27.0-33.0); MEAN CORPUSCULAR HGB CONC 31.5 g/dl (32.0-36.5); MEAN CORPUSCULAR VOLUME 92.9 fl (80.0-96.0); MONO # 0.9 10^3/uL (0.0-0.8); MONO % 5.8 % (0.0-5.0); NEUTROPHILS # 12.3 10^3/uL (1.8-7.7); NEUTROPHILS % 82.8 % (36.0-66.0); PLATELET COUNT, AUTOMATED 323 10^3/uL (150-450); RED BLOOD COUNT 4.07 10^6/uL (4.30-6.10); WHITE BLOOD COUNT 14.9 10^3/uL (4.0-10.0)
[2019-01-17 06:45] LABS: BLOOD UREA NITROGEN 11 MG/DL (7-18); CALCIUM LEVEL 8.4 MG/DL (8.5-10.1); CARBON DIOXIDE LEVEL 27 MEQ/L (21-32); CHLORIDE LEVEL 103 MEQ/L (98-107); CREATININE FOR GFR 0.47 MG/DL (0.70-1.30); GLOMERULAR FILTRATION RATE > 60.0 (>60); GLUCOSE, FASTING 213 MG/DL (70-100); POTASSIUM SERUM 3.8 MEQ/L (3.5-5.1); SODIUM LEVEL 137 MEQ/L (136-145)
[2019-01-17 08:00] VITALS: BP 118/76
--- NOTE | 2019-01-17 08:46 | REP ---
Chest x-ray: Two views. History: Pneumothorax. Comparison chest x-ray: January 16, 2019. Findings: EKG electrodes are seen. Right apical chest tube remains in place. No significant pneumothorax. Decrease in amount of extrathoracic air. Lung walker are unchanged. There is some fissural thickening in the right major fissure on lateral radiograph again noted. Electronically Signed by Walt Salinas MD 01/17/2019 08:59 A
--- NOTE | 2019-01-17 09:09 | IPN ---
DATE: 01/16/2019 Mr. Arceo is more short of breath and wheezing much more than he was yesterday. He is also complaining of his chronic back pain. He is on extraordinary amount of narcotics, maintained by his primary care physicians, and he has obviously acclimated himself to high doses and the doses of pain control I am giving him now are not touching him. His vital signs show a maximum temperature (Tmax) of 99.6 with a heart rate that ranges between 105 and 120 in a sinus tachycardia, respiratory rate of 20 to 24 without use of accessory muscles, who is 95-94% saturated on 2 liters nasal cannula, and whose blood pressure is ranging between 108/60 to 121/86. His intake and output for the past 24 hours has been recorded as 2365 in and 1540 out for a positivity 825 mL. There is no air leak. He has put out 190 mL from the chest tube. He weighs 73.7 kg today compared to 66.6 kg yesterday. On physical examination, he has bilateral wheezing on either side. Percussion notes are full to the diaphragm. I feel no subcutaneous emphysema. Cardiac exam shows tachycardia with a 2/6 systolic ejection murmur heard at the right upper sternal border. I cannot feel his PMI. S1 and S2 are normal. Abdomen is soft and nontender. Bowel sounds are positive. There is no hepatomegaly. No costovertebral angle (CVA) tenderness. Extremities show no pretibial edema. No calf tenderness. No differential swelling of the upper extremities. Skin is warm, dry, and perfused, without cyanosis or mottling, including that of the nail beds and the knees. Neck is supple. There is no jugular venous distention. No subcutaneous emphysema. Trachea is midline. Mouth shows his mucous membranes to be pink and moist, lips and commissures without lesions. There is no thrush. Eyes show his pupils to be equal and reactive. Extraocular intact. Sclerae nonicteric. Neurologic shows II-XII intact along with gross motor and gross sensation intact. Gait is not tested. Psychiatric shows him to be appropriately anxious regarding his diagnosis and pain. His white count today is 14.2 with a hemoglobin/hematocrit of 11.7/37.2, and a platelet count of 286. Differential shows 80% neutrophils, 11% lymphocytes and 5% monocytes. There are no immature forms and no toxic granulations. His electrolytes are normal with a BUN and creatinine of 18 and 0.66 with a glucose of 312 and a calcium of 8.2. PT/INR is 13.4/1.01. His chest x-ray shows the right lung fully expanded to the chest wall. There is minimal subcutaneous emphysema in the axilla. The left upper lobe mass is still there and the diaphragm is obscured on the left additionally. There is fluid in the major fissure I think on the right side. IMPRESSION: 1. Tension pneumothorax, resolved with a chest tube. 2. Respiratory failure, resolved. 3. Left upper lobe opacity, probably a mass, for biopsy today. 4. Multiple metastatic nodules throughout both lungs, right greater than left. 5. Unexplained weight loss, probably secondary to malignancy. 6. Chronic obstructive pulmonary disease (COPD). 7. Tobacco abuse. 8. Hypertension. 9. Probable bicuspid aortic valve. 10. Inadequate pain control. PLAN AND DISCUSSION: He is to go down to x-ray today for a biopsy of the left upper lobe mass. CAT scan definitely shows a mass, although it is unclear whether the biopsy we are going to be taking is from a necrotic area. Cytology is going to be available. His pain control is utterly inadequate and I will therefore place a Duragesic patch. I think that his life expectancy is rather limited and there is no sense in trying to wean him off the narcotic analgesia that he has been on for a long time by primary care. I will diurese him today as he is wheezing and his ins and outs are positive.
[2019-01-17] MEDS: predniSONE 10 MG TAB PO SCH (09:20)
[2019-01-17] MEDS: PANTOPRAZOLE 40MG TAB (PROTONIX) PO SCH (09:20)
[2019-01-17] MEDS: DOCUSATE SODIUM 100 MG CAP PO SCH ×2 (09:20→21:09)
[2019-01-17] MEDS: CARISOPRODOL 350 MG TAB PO SCH (09:20)
[2019-01-17] MEDS: MOM 30ML SUSPENSION UDC PO SCH (09:20)
[2019-01-17] MEDS: HEPARIN SOD (PORCINE) 5000 UNITS/ML VIAL SC SCH ×2 (09:21→21:09)
[2019-01-17] MEDS: TIOTROPIUM INHALER/CAPSULE (SPIRIVA) INH SCH (10:03)
[2019-01-17] MEDS: SYMBICORT 160/4.5MCG INHALER 6GM INH SCH ×2 (10:03→22:10)
--- NOTE | 2019-01-17 10:59 | REP ---
CT-guided right upper lobe lung biopsy The procedure is performed by JHON Jacobs, under the [personal supervision of Dr. Salazar. The patient has a history of a left lung mass. The risks and benefits of the procedure were explained to the patient and informed consent was obtained both orally and written. Directly prior to the start of the procedure, a formal time a was done and the exam room. The left lung mass was localized using CT guidance. Skin was prepped and draped in the usual sterile fashion. 3 ml of 1% lidocaine was used as a local anesthetic. Using CT guidance and 19/20 gauge coaxial needle biopsy system was inserted and advanced into the nodule. Five core biopsy samples were obtained and sent to the lab. CT images obtained directly after the biopsy show no evidence of pneumothorax. After the appropriate amount of monitored convalescence the patient was discharged to the unit. Reviewed by JHON Wagner 01/16/2019 06:13 P Electronically Signed by Anderson Salazar MD 01/17/2019 10:50 A
[2019-01-17 12:00] VITALS: BP 117/78
--- NOTE | 2019-01-17 12:07 | PFTRPT ---
Height: 67.00 Inches Weight: 159.00 Lbs BSA: 1.83 Diagnosis: tension pneumothorax DATE OF PROCEDURE: 01/17/2019 ORDERED BY: Dr. Higginbotham Spirometry: Pre and post bronchodilator study of excellent technical quality. Forced vital capacity reduced. FEV1 out of proportion. Obstructive index is, therefore, reduced. Flow Volume Loop: Expiratory limb of the flow volume loop does suggest flow rate limitation. No significant bronchodilator response identified. IMPRESSION: Moderate obstructive ventilatory impairment without bronchodilator response. Please correlate clinically. MTDD
--- NOTE | 2019-01-17 13:37 | ECHO ---
DATE OF PROCEDURE: 01/16/2019 DATE OF : 1975 AGE: 44 REFERRING PROVIDER: Dr. Nathanael Law PATIENT LOCATION: Room 3211 REASON FOR THE ECHOCARDIOGRAM: Possible endocarditis. 2D MEASUREMENTS: IVS: 1.2 cm LV: 4.7 cm LVPW: 1.2 cm LA: 3.3 cm Aorta: 3.2 cm IVC: 2.5 cm DOPPLER MEASUREMENTS: Peak velocity across the aortic valve: 3.4 m/s Peak velocity across the LVOT: 0.77 m/s Peak gradient across the aortic valve: 46 mmHg Mean gradient across the aortic valve: 31 mmHg Mitral E: 0.97 Mitral A: 1.0 Ratio: 0.9 2D COMMENTS: 1. Normal left ventricular size, wall thickness and normal global left ventricular systolic function. The estimated left ventricular systolic ejection fraction is 60-65%. 2. Normal left atrium. Normal right atrium and right ventricle. 3. The atrial septum appeared to be normal without evidence of defect or shunt. 4. Normal aortic root. 5. Trace to small pericardial effusion noted, no evidence of cardiac tamponade. Pleural effusion left was noted in limited views. 6. Moderately calcified aortic valve. Leaflet excursion appeared to be restricted. Normal mitral valve, tricuspid valve and pulmonic valve. The proximal pulmonary artery branches appeared to be normal. 7. The inferior vena cava was mildly enlarged, central venous pressure is probably elevated. DOPPLER: It detects trace aortic regurgitation, trace mitral regurgitation, trace tricuspid regurgitation and trace pulmonic regurgitation. The pulmonary artery systolic pressure is most likely normal. Abnormal relaxation pattern was noted across the mitral valve leaflets as well as the mitral valve annulus consistent with a delayed relaxation. IMPRESSION: 1. Normal global left ventricular systolic function. There are no features of left ventricular diastolic dysfunction, impaired relaxation. 2. Aortic valve sclerosis with trace aortic regurgitation and probably moderate aortic stenosis. Could not rule out an underlying bicuspid aortic valve. 3. Trace mitral regurgitation. 4. Trace tricuspid regurgitation with probably a normal calculated pulmonary artery systolic pressure. 5. Trace to small pericardial effusion noted, no evidence of cardiac tamponade. Pleural effusion, left was noted in limited views. 6. There are some features of left ventricular diastolic dysfunction. 7. No vegetations noted on the mitral, tricuspid, and pulmonic valves. Could not rule out vegetations on the aortic valve, transesophageal echocardiogram would be helpful. MTDD
[2019-01-17] MEDS ORDERED: SLF 3 ML SYR IV PRN (14:45)
[2019-01-17] MEDS ORDERED: CYANOCOBALAMIN 1,000 MCG/ML VIAL (J3420) IM ONE (15:00)
[2019-01-17 16:00] VITALS: BP 128/78
[2019-01-17 20:00] VITALS: BP 129/93
[2019-01-17] MEDS: SLF 3 ML SYR IV SCH (21:10)
--- NOTE | 2019-01-17 21:13 | IPN ---
DATE: 01/17/2019 Mr. Arceo has been moved to the back of progressive care unit (PCU) on droplet protection, for which is unclear as to why it was instituted. He certainly does not have pneumonia and he is not on any antibiotics. He is still short of breath, however. He has a cough. He is complaining of pain at the chest tube insertion site. His vital signs show a maximum temperature (Tmax) of 99.4 with a heart rate that ranges between 113 and 125 in a sinus tachycardia, respiratory rate anywhere from 22 to 30 without the use of accessory muscles, who is 96% saturated on 2 liters nasal cannula, and whose blood pressure is ranging between 125/95 to 110/71. His intake and output for the past 24 hours has been recorded as 2250 in and 1280 out for a positivity 970 mL. He put 330 out of the chest tube yesterday. His weight today is 72.2 kg compared to 73.7 kg yesterday. He has put out nothing in the last 12 hours from the chest tube. PHYSICAL EXAMINATION: LUNGS: His lungs show diffuse crackles throughout. His wheezing is better, however, today. Percussion notes are full to the diaphragm on the right, dull on the left. CARDIAC EXAM: 2/6 systolic ejection murmur heard best at the left upper sternal border. I cannot feel his point of maximum impulse (PMI). S1, S2 are normal. ABDOMEN: Soft, nontender. Bowel sounds positive. There is no hepatomegaly. No costovertebral angle tenderness. EXTREMITIES: Show no pretibial edema. No calf tenderness. No differential swelling of the upper extremities. SKIN: Warm, dry and perfused without cyanosis or mottling, including that of the nail beds and knees. NECK: Supple. There is no jugular venous distention. No subcutaneous emphysema. Trachea is midline. MOUTH: Shows his mucous membranes to be pink and moist. Lips and commissures without lesions. There is no thrush. EYES: Show his pupils to be equal and reactive. Extraocular motion intact. Sclerae anicteric. NEUROLOGIC: Shows II through XII intact with gross motor and gross sensation intact. Gait is not tested. PSYCHIATRIC: Shows him to be awake and alert, oriented times three with appropriate mood and affect and conversational. His white count today is 14.9 with a hemoglobin/hematocrit of 11.0 and 37.6, respectively, and a platelet count of 323 and stable. Differential shows 82% neutrophils, 9% lymphocytes and 5% monocytes. There are no immature forms and no toxic granulations. His electrolytes are normal with a BUN and creatinine of 11 and 0.47 with a glucose of 213 and a calcium of 8.4. There are no blood gases on him today. He underwent a biopsy of his left upper lobe lesion and it has now been returned as adenocarcinoma. There is a paucity of tissue, and we are saving most of it for specific markers. More generalized markers of TTF1 are going to be done to assure us that this is indeed a lung primary. His chest x-ray shows the right lung fully expanded to the chest wall. The left lung is unchanged with opacity in the upper extents of the hemithorax and lower extents of the hemithorax. The diaphragm is obscured. Lateral chest x-ray shows fluid in the major fissure, most likely on the left. We do know that he has a small left sided pleural effusion. IMPRESSION: 1. Diffusely metastatic adenocarcinoma. 2. Respiratory failure secondary to #3. 3. Tension pneumothorax, resolved with a chest tube. 4. Weight loss secondary to malignancy. 5. Chronic obstructive pulmonary disease (COPD). 6. Tobacco abuse. 7. Hypertension. 8. Bicuspid aortic valve. 9. Inadequate pain control, improved. PLAN AND DISCUSSION: I have talked to Dr. Bragg of oncology. She was at the cancer conference yesterday when I presented him. She will see him in consultation. Our contribution is to maximize his lung function as much as possible. He has put out a little bit too much from the chest tube, but he has put out nothing in the last 12 hours and so I may remove it later today. He has no air leak. I have instructed to take him off droplet precautions, as he does not have a pneumonia.
[2019-01-17 23:59] VITALS: BP 112/90
[2019-01-18] MEDS: LEVALBUTEROL 1.25 MG/0.5 ML CONCENTRATE NEB NEB SCH ×3 (01:22→14:03)
[2019-01-18 04:00] VITALS: BP 136/84
[2019-01-18] MEDS: SLF 3 ML SYR IV SCH ×2 (04:00→14:00)
[2019-01-18] MEDS: PERCOCET 5MG/325MG TAB PO PRN ×3 (04:01→14:56)
[2019-01-18] MEDS: KETOROLAC 30 MG/ML VIAL (J1885) IV SCH ×2 (04:01→09:40)
[2019-01-18 05:26] LABS: BASO % 0.2 % (0.0-1.0); EOS # 0.2 10^3/uL (0.0-0.50); EOS % 1.5 % (0.0-3.0); HEMATOCRIT 35.2 % (42.0-52.0); HEMOGLOBIN 11.1 g/dl (13.5-17.5); LYMPH # 1.7 10^3/uL (1.5-4.5); MEAN CORPUSCULAR HEMOGLOBIN 29.1 pg (27.0-33.0); MEAN CORPUSCULAR HGB CONC 31.5 g/dl (32.0-36.5); MEAN CORPUSCULAR VOLUME 92.4 fl (80.0-96.0); MONO # 0.7 10^3/uL (0.0-0.8); MONO % 5.8 % (0.0-5.0); NEUTROPHILS # 10.1 10^3/uL (1.8-7.7); PLATELET COUNT, AUTOMATED 358 10^3/uL (150-450); RED BLOOD COUNT 3.81 10^6/uL (4.30-6.10); WHITE BLOOD COUNT 12.8 10^3/uL (4.0-10.0)
[2019-01-18 05:59] LABS: BLOOD UREA NITROGEN 17 MG/DL (7-18); CALCIUM LEVEL 8.5 MG/DL (8.5-10.1); CARBON DIOXIDE LEVEL 27 MEQ/L (21-32); CHLORIDE LEVEL 105 MEQ/L (98-107); CREATININE FOR GFR 0.61 MG/DL (0.70-1.30); GLOMERULAR FILTRATION RATE > 60.0 (>60); GLUCOSE, FASTING 222 MG/DL (70-100); POTASSIUM SERUM 3.9 MEQ/L (3.5-5.1); SODIUM LEVEL 139 MEQ/L (136-145)
[2019-01-18] MEDS: TIOTROPIUM INHALER/CAPSULE (SPIRIVA) INH SCH (07:36)
[2019-01-18] MEDS: SYMBICORT 160/4.5MCG INHALER 6GM INH SCH (07:36)
[2019-01-18 08:00] VITALS: BP 140/74
[2019-01-18] MEDS: MOM 30ML SUSPENSION UDC PO SCH (08:03)
--- NOTE | 2019-01-18 08:50 | REP ---
Chest x-ray: Two views: History: Pneumothorax. Findings: The right chest tube has been removed. There is no visible pneumothorax. Extensive right and left lung opacities are again noted unchanged. Impression: Right chest tube removed. No evidence of recurrent pneumothorax. Electronically Signed by Walt Salinas MD 01/18/2019 09:27 A
[2019-01-18] MEDS: HEPARIN SOD (PORCINE) 5000 UNITS/ML VIAL SC SCH (09:38)
[2019-01-18] MEDS: PANTOPRAZOLE 40MG TAB (PROTONIX) PO SCH (09:40)
[2019-01-18] MEDS: DOCUSATE SODIUM 100 MG CAP PO SCH (09:40)
[2019-01-18] MEDS: predniSONE 10 MG TAB PO SCH (09:40)
[2019-01-18] MEDS: CARISOPRODOL 350 MG TAB PO SCH (09:45)
[2019-01-18 13:00] VITALS: BP 120/70
--- NOTE | 2019-01-18 14:19 | REP ---
WHOLE BODY BONE SCAN: Following the intravenous administration of 21.7 mCi of technetium-99m MDP, patient's whole body is imaged in the anterior and posterior projections. Additional oblique and lateral views are also performed. There is scattered arthritic uptake along the thoracolumbar spine. There is curvature of the lower thoracic spine convex to the right and of the lumbar spine convex to the left. No suspicious foci of abnormal uptake are seen, with no compelling scintigraphic evidence of osseous metastases. Renal and bladder activity are seen. IMPRESSION: No compelling scintigraphic evidence of osseous metastases. Electronically Signed by Anderson Salazar MD 01/21/2019 01:38 P
--- NOTE | 2019-01-18 14:42 | CR ---
DATE OF CONSULTATION: 01/17/2019 REQUESTING PROVIDER: Nathanael Law MD requested inpatient oncology consult for management and recommendations regarding newly diagnosed adenocarcinoma. HISTORY OF PRESENT ILLNESS: Regis rAceo is a 44-year-old man with a 60 pack-year smoking history, stopped a few days ago, admitted 01/14/2019 with acute on chronic shortness of breath, cough, found to be severely hypoxic and with large right tension pneumothorax with mediastinal shift. Chest tube was placed and CT chest revealed multiple bilateral too numerous to count pulmonary nodules, extensive postobstructive consolidation versus pneumonia involving left upper lobe, left lower lobe, small left pleural effusion, and a 3.9 cm dominant left upper lobe likely parenchymal mass. Abdomen and pelvis CT showed hepatomegaly but no suspicious adenopathy or masses. CT-guided biopsy positive for poorly differentiated adenocarcinoma with molecular markers pending. At baseline, Mr. Arceo is on disability for chronic pain related to back and shoulder pain. 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 He was under workup for rotator cuff surgery in the last two years. He is on very high doses of chronic opioids for his chronic back and shoulder pain. The prodrome to his admission here is about 3+ months of progressive cough, shortness of breath, unrelieved by antibiotics but with brief relief by prednisone and then acute shortness of breath, January 13 and leading him to the emergency room. He denies copious hemoptysis, but thinks he might have coughed up a little bit of blood-tinged sputum at some point. He has had a major weight loss in the last 3-6 months according to his family. PAST MEDICAL HISTORY: Presumptive chronic obstructive pulmonary disease (COPD), hypertension, chronic back pain for many years and bilateral shoulder pain. PAST SURGICAL HISTORY: Bilateral rotator cuff surgery, lumbar diskectomy. HOME MEDICATIONS: - ProAir HFA 2 puffs q.4 h - Vicodin 10/325 q.i.d. p.r.n. - oxycodone 45 mg t.i.d. - prednisone 10 mg daily - Soma 350 mg four times daily - fish oil ALLERGIES: BEE VENOM, CODEINE. SOCIAL HISTORY: Patient is . Lives in [place], grew up in [place]. Has grown children and some granddaughters. On disability for chronic pain. Acknowledges periodic overuse of alcohol. FAMILY HISTORY: Father with prostate cancer in his 60s or 70s, nonmetastatic. No other malignancy. REVIEW OF SYSTEMS: In addition to the pertinent positives and negatives above, Regis notes occasional leg cramping, weight loss, improved appetite in the last 48 hours, improved breathing in the last 48 hours, improved energy and mobility in the last 48 hours. No urinary or bowel symptoms. Remainder of 12 system review negative. PHYSICAL EXAMINATION: The patient is reclining in bed, very lively slender gentleman surrounded by and [id number]. Respiratory: Decreased breath sounds in the right lung, excellent air movement in the left lung with some coarse breath sounds, no wheezes. Cardiac: S1, S2. Regular rate and rhythm. No murmur. No gallop. Distant heart sounds. Abdomen: Soft, nontender, nondistended. I was unable to appreciate hepatomegaly on exam. No splenomegaly. Extremities: No edema. Lymph nodes: No palpable submandibular, cervical, supraclavicular or axillary adenopathy. LABORATORY DATA: WBC 15, hemoglobin 12, hematocrit 37, platelets 323, neutrophil percent 82, normal electrolytes, creatinine 0.47, GFR greater than 60, glucose 213, calcium 8.4, albumin 3.1, normal TSH, normal PSA. PSA is 0.72. IMPRESSION: 1. Clinical [id number] adenocarcinoma of lung involving dominant left upper lobe 3.9 cm mass, multiple bilateral pulmonary nodules. 2. Status post tension pneumothorax, chest tube, much improved. 3. Hepatomegaly, possibly from alcohol use. 4. Chronic pain, chronic high-dose opioid use. PLAN/RECOMMENDATIONS: 1. I spoke at length with Regis and his family about the diagnosis of lung cancer, explained this is most likely metastatic based on the multiple bilateral pulmonary nodules, and conveyed the news that stage IV lung cancer is not curable. He took this stoically. We discussed palliative treatment, including three-drug regimen such as carboplatin / pemetrexed /Pembrolizumab. He would like to go forward with this. The current working plan is for him to discharge in the next 48 hours, he could start treatment early next week. 2. B12 1 mg injection IM today anticipating pemetrexed treatment next week. 3. I will followup with pathology on ALK, EGFR and PD-L1 results. Regardless of PD-L1 status, we would start Regis on a three-drug regimen as it offers possibly a better response rate, he is young and already feeling much better with a baseline good performance status. 4. I did mention to Regis that as we go along we will need to manage his chronic pain possibly under palliative care as this is somewhat of a separate issue from acute issues regarding his lung cancer. The patient and his family asked many astute questions, all of which I answered to the best of my ability. He is enthusiastic about starting treatment. I explained typical prognosis for non-small cell lung cancer stage IV: 6 months untreated, 1 year plus with treatment; more recently with immunotherapy patient's are living for extended periods of time, including patient is on immunotherapy for years. We have already built in a treatment date next week and Regis will be hearing from our office. Thank you for this consultation. EMMIE
--- NOTE | 2019-01-22 08:10 | DSES ---
DATE OF ADMISSION: 01/14/2019 DATE OF DISCHARGE: 01/18/2019 DISCHARGE DIAGNOSES: 1. Diffusely metastatic stage IV adenocarcinoma. 2. Tension pneumothorax resolved with a chest tube. 3. Respiratory failure secondary to #2. 4. Weight loss secondary to malignancy. 5. Chronic obstructive pulmonary disease (COPD). 6. Tobacco abuse. 7. Hypertension. 8. Bicuspid aortic valve. 9. Hypoxia. 10. Chronic back pain. DISCHARGE SUMMARY: Patient is a 44-year-old while male who presented to the emergency room on 01/14/2019 in respiratory distress and near failure. He was found to have a tension pneumothorax. I immediately placed a chest tube wit relief of his tension pneumothorax and shortness of breath. On the post chest tube x-ray, he had an opacity in the left upper lobe and in the right upper lobe along with patchy nodules and infiltrates throughout his right lung. CT scan showed diffuse nodules throughout both lungs, too numerous to count. He had a subsequent CT with contrast showing left upper lobe mass. This underlying needle biopsy was found to be poorly differentiated adenocarcinoma, TTF-1 positive. Genic markers are pending. His chest tube was removed on the third hospital day and there was no air leak. His chest x-ray shows his lungs fully expanded to the chest wall after removal of the chest tube 24 hours later. He was hypoxic with ambulation down to 86%. His original story starts back in early August when he underwent preoperative testing for his left shoulder repair this October. He underwent a stress test and a spirometry. I do not have those results. No x-ray was taken. He was cleared for surgery and had surgery done by [facility] in [place] on his left shoulder. He evidently had left shoulder x-rays. Over the course of the last 6 months, he has lost approximately 40 pounds of weight. According to the patient, he noted this weight change in concern to his primary care provider. He also states that in late November, he started to cough up frothy, pink-colored sputum. He sought medical attention at urgent care as he could not get an appointment with his primary care provider. Urgent care put him on antibiotics and gave him prednisone wheelchair made him feel better. He still continued with increasing shortness of breath over the 4 months since September. He had previously seen his primary care provider where he was prescribed inhalers of Incruse and Breo for which he discontinued the Breo himself because of side effects. In December, he again sought medical attention complaining of chest discomfort in his anterior chest and more increased difficulty breathing, more cough with pink, sputum and more shortness of breath. It is unclear to me what happened at the early December visit and his next encounter with medical care was this admission. He was seen by oncology as an in patient and he has an appointment with oncology next week to begin chemotherapy after the markers are back. In the meantime, his sister, who works at [employer] wishes him to go to [employer] and we will provide all the films and path reports as necessary. He will return to see me in 1 week with a chest x-ray. He is to continue on his home medications, which include ProAir two puffs every 4 hours as needed shortness of breath, carisoprodol 350 mg four times a day as needed muscle spasms, Vicodin 10/325 four times a day as needed pain, oxycodone 15 mg, 7.5 mg three times a day as needed pain, prednisone 10 mg daily and Incruse one puff daily. He is also being sent home on home oxygen at 2 liters nasal cannula with portability. His primary care provider has put him on this narcotic medication for his chronic back pain. Considering his diagnosis now, I see no reason to try and cut back on his pain medication. I did dry to decrease his prednisone in hospital and he developed increased wheezing. I did diurese him but increased his prednisone back to the dose that the urgent care had prescribed. He has been advised not to lift anything more than 5 pounds.
== END 2019-01-18 15:55 | disposition home or self-care (01) | DRG 136 ==
LOC: M ED 19:38 → M ED INP 20:12 → M ICU 20:36 → M PCU 01-15 17:42
PROVIDERS: ADMIT Thoracic Surgery (Cardiothoracic Vascular Surgery); ATTEND Thoracic Surgery (Cardiothoracic Vascular Surgery)
PROC: 0W9930Z Drainage of Right Pleural Cavity with Drainage Device, Percutaneous Approach (ICD-10-PCS; principal; 2019-01-14)
PROC: 0BBG3ZX Excision of Left Upper Lung Lobe, Percutaneous Approach, Diagnostic (ICD-10-PCS; 2019-01-16)
DX: C34.12 Malignant neoplasm of upper lobe, left bronchus or lung (principal); J93.0 Spontaneous tension pneumothorax; J96.90 Respiratory failure, unspecified, unspecified whether with hypoxia or hypercapnia; C78.01 Secondary malignant neoplasm of right lung; Q23.1 Congenital insufficiency of aortic valve; J44.9 Chronic obstructive pulmonary disease, unspecified; I10 Essential (primary) hypertension; M54.9 Dorsalgia, unspecified; R63.4 Abnormal weight loss; Z87.891 Personal history of nicotine dependence; Z79.891 Long term (current) use of opiate analgesic; Z79.52 Long term (current) use of systemic steroids; Z79.899 Other long term (current) drug therapy

== ENCOUNTER 2019-01-19 05:42 | Emergency (ER) | payer OTHER ==
[~2019-01-19 05:42] MED LIST: ALBU8.5H; CARI1TAB7 PO; GLYD10GE EXT; HYDR-3719 PO; OXYC15TA76 PO; PRED10TA2 PO; PROAAER10 INH
[2019-01-19] MEDS ORDERED: EPINEPHrine 1MG/10ML SYRINGE 1.5IN ONE (05:43)
== END 2019-01-19 09:45 | disposition expired ==
LOC: M ED 05:42
DX: I46.9 Cardiac arrest, cause unspecified (principal); C34.90 Malignant neoplasm of unspecified part of unspecified bronchus or lung